=== PATIENT | female | born 1965 | race Caucasian/White ===

== ENCOUNTER 2019-06-04 00:12 | Day surgery (SDC) | payer OTHER, SELFPAY ==
[2019-06-01 15:56] VITALS: BMI 35.2
[2019-06-04 09:50] VITALS: BP 118/91; PULSE 79; RESP 16; TEMP 36.6; O2SAT 100
--- NOTE | 2019-06-04 09:54 | WPDANESEPPF ---
Anes - Initial Pre Proc Eval Procedure: Operation Date: 06/04/19 11:00 Proposed Procedures p Screening Colonoscopy - Chris Rosa MD Date/Time: 06/04/19 09:54 Surgeon: Chris Rosa MD Pre Op Diagnosis: Neoplasm Screening Patient Data Age: 53 Gender: F Height: 1.63 m Weight: 93 kg Allergies Allergy/AdvReac Type Severity Reaction Status Date / Time No Known Allergies Allergy Verified 06/01/19 15:53 Home Medications Medication Instructions Recorded Confirmed Type aspirin 325 mg PO DAILY 06/01/19 06/01/19 History hydrochlorothiazide 12.5 mg PO DAILY 06/01/19 06/01/19 History losartan 50 mg PO DAILY 06/01/19 06/01/19 History Patient hx anesthesia problems: none Family hx anesthesia problems: none PMF Past Medical History Medical History (Updated 06/04/19 @ 09:56 by Quinn Munoz MD) Arthritis HTN (hypertension) Obesity Pulmonary embolism 2015 Family History Family History (Updated 11/24/15 @ 23:21 by DOCTOR UNKNOWN) Sibling Family history of gout Patient's brother is in good health Mother Hypertension Other Carcinoma of colon Family history of malignant neoplasm of breast Social History Social History Smoking status: Never smoker Alcohol intake: current Anes - Eval Final PreProcedure Day of Procedure 06/04/19 09:54 Patient weight: obese Heart: regular rate and rhythm Lungs: clear to auscultation and normal air movement Airway: Mallampati scale class II Neurological: alert and oriented Last oral intake: >/= 8 hours ASA classification: III Emergent: no Anesthetic plan: proceed Anesthesia type and monitoring: general GIVS Informed Consent: The patient's anesthetic plan and its attendant risks and benefits were discussed with the patient/family/POA. Questions were solicited and answers provided to the satisfaction of the patient/family/POA.
[2019-06-04] MEDS: LACTATED RINGERS 1,000 ML 150 ML IV CONT (10:29)
--- NOTE | 2019-06-04 10:53 | PM.HPGS ---
History of Present Illness History of Present Illness Consent: Risks, benefits, and alternatives have been discussed and questions answered. Patient agrees to proceed with procedure. Chief complaint: Neoplasm Screening Narrative: Tanya Pratt is a 53 year old female referred for colon cancer screening [facility] Past Medical History Medical History Arthritis HTN (hypertension) Obesity Pulmonary embolism 2016 Family History Family History Sibling Family history of gout Patient's brother is in good health Mother Hypertension Other Carcinoma of colon Family history of malignant neoplasm of breast Social History Social History Smoking status: Never smoker Alcohol intake: current Meds Home Medications and Allergies Home Medications Medication Instructions Recorded Confirmed Type aspirin 325 mg PO DAILY 06/01/19 06/04/19 History hydrochlorothiazide 12.5 mg PO DAILY 06/01/19 06/04/19 History losartan 50 mg PO DAILY 06/01/19 06/04/19 History Allergies Allergy/AdvReac Type Severity Reaction Status Date / Time No Known Allergies Allergy Verified 06/04/19 10:06 Vital Signs Vital Signs - 24 hr 06/04/19 09:50 Temperature 36.6 C Pulse Rate 79 Respiratory Rate 16 Blood Pressure 118/91 H Pulse Oximetry 100 Exam Resp: Auscultation: clear to auscultation bilaterally Cardio: Rate: regular rate Rhythm: regular rhythm GI: GI Palp: Yes Soft to palpation and No Tenderness to palpation present (GI) Assessment and Plan Assessment and plan (1) Colon cancer screening: Code(s): Z12.11 - Encounter for screening for malignant neoplasm of colon Status: Acute Assessment and Plan: Colonoscopy with possible biopsy or polypectomy or cautery or injection of substances.
[2019-06-04 11:07] VITALS: BP 103/70; PULSE 83; RESP 22; O2SAT 96
[2019-06-04 11:17] VITALS: BP 116/74; PULSE 76; RESP 17; O2SAT 100
[2019-06-04 11:27] VITALS: BP 105/65; PULSE 80; RESP 21; O2SAT 100
== END 2019-06-04 11:36 | disposition home or self-care (01) ==
PROVIDERS: PCP Internal Medicine; Visit Provider Internal Medicine Gastroenterology
PROC: 0DJD8ZZ Inspection of Lower Intestinal Tract, Via Natural or Artificial Opening Endoscopic (ICD-10-PCS; CPT 45378; principal; 2019-06-04 11:00)
DX: Z12.11 Encounter for screening for malignant neoplasm of colon (principal); I10 Essential (primary) hypertension; M19.90 Unspecified osteoarthritis, unspecified site; Z86.711 Personal history of pulmonary embolism; E66.9 Obesity, unspecified; Z68.35 Body mass index [BMI] 35.0-35.9, adult; Z79.82 Long term (current) use of aspirin
CPT/HCPCS: 45378; J2704; J7120

== ENCOUNTER 2022-03-17 10:43 | Emergency (ER) | payer OTHER, SELFPAY ==
--- NOTE | ~2022-03-17 | XR_ITS ---
EXAMINATION: XR knee LT min 4V DATE: 03/17/2022 11:22 INDICATION: Generalized left knee pain post twisting injury TECHNIQUE: Anteroposterior, 2 oblique and crosstable lateral views of the left knee were obtained COMPARISON: None. FINDINGS: Alignment is normal. No fracture. Small to moderate-sized left knee joint effusion without layering lipohemarthrosis. Soft tissues are unremarkable. IMPRESSION: 1. Small to moderate-sized left knee joint effusion. No osseous abnormality. Reviewed, dictated and finalized at location A. ER OPERATOR
[2022-03-17 10:44] VITALS: BP 130/76; PULSE 104; RESP 18; TEMP 37.5; O2SAT 98
--- NOTE | 2022-03-17 12:02 | ED.GENADULT ---
HPI - General Adult General Chief complaint: Extremity Injury, Lower Stated complaint: left knee injury Time Seen by Provider: 03/17/22 11:09 History of Present Illness HPI narrative: 56-year-old female presents for evaluation of left knee pain. Patient states she was walking when her knee gave out and twisted . She is able to ambulate but it is painful to do so. There were no falls or other trauma associated with this injury. Related Data Home Medications Medication Instructions Recorded Confirmed aspirin 325 mg tablet 325 mg PO DAILY 06/01/19 06/04/19 hydrochlorothiazide 12.5 mg tablet 12.5 mg PO DAILY 06/01/19 06/04/19 losartan 50 mg tablet 50 mg PO DAILY 06/01/19 06/04/19 Allergies Allergy/AdvReac Type Severity Reaction Status Date / Time No Known Allergies Allergy Verified 03/17/22 10:43 Review of Systems Review of Systems: CONSTITUTIONAL: Denies fever, chills, or sweats. EYES: Denies visual changes, redness, or discharge. ENT: Denies rhinorrhea, congestion, sore throat, or otalgia. CARDIOVASCULAR: Denies chest pain, palpitations, or edema. RESPIRATORY: Denies cough or dyspnea. GASTROINTESTINAL: Denies abdominal pain, nausea, vomiting, or diarrhea. GENITOURINARY: Denies dysuria or hematuria. SKIN: Denies rash or itching. MUSCULOSKELETAL: Denies back pain, joint pain, or myalgia, questionable MCL laxity on exam NEUROLOGIC: Denies headache, numbness, or weakness. PSYCHIATRIC: Denies anxiety or depression. [facility], [facility] Past Medical History Medical History (Updated 06/04/19 @ 10:54 by Chris Rosa MD) Arthritis HTN (hypertension) Obesity Pulmonary embolism 2016 Family History Family History Sibling Family history of gout Patient's brother is in good health Mother Hypertension Other Carcinoma of colon Family history of malignant neoplasm of breast Social History Social History Smoking status: Never smoker Alcohol intake: current Course Vital Signs Vital signs: Vital Signs Temperature 99.5 F 03/17/22 10:44 Pulse Rate 104 H 03/17/22 10:44 Respiratory Rate 18 03/17/22 10:44 Blood Pressure 130/76 03/17/22 10:44 Pulse Oximetry 98 03/17/22 10:44 Oxygen Delivery Room Air 03/17/22 10:44 Temperature 99.5 F 03/17/22 10:44 Pulse Rate 104 H 03/17/22 10:44 Respiratory Rate 18 03/17/22 10:44 Blood Pressure 130/76 03/17/22 10:44 Pulse Oximetry 98 03/17/22 10:44 Oxygen Delivery Room Air 03/17/22 10:44 Medical Decision Making MDM Narrative Medical decision making narrative: X-rays notable for a left knee effusion but no other bony pathology noted. Will give Marlon wrap and crutches and patient to follow-up with orthopedics. Vital Signs Vital Signs: Vital Signs Temperature 99.5 F 03/17/22 10:44 Pulse Rate 104 H 03/17/22 10:44 Respiratory Rate 18 03/17/22 10:44 Blood Pressure 130/76 03/17/22 10:44 Pulse Oximetry 98 03/17/22 10:44 Oxygen Delivery Room Air 03/17/22 10:44 Temperature 99.5 F 03/17/22 10:44 Pulse Rate 104 H 03/17/22 10:44 Respiratory Rate 18 03/17/22 10:44 Blood Pressure 130/76 03/17/22 10:44 Pulse Oximetry 98 03/17/22 10:44 Oxygen Delivery Room Air 03/17/22 10:44 Discharge Plan Discharge Prescriptions: No Action losartan 50 mg Tablet 50 mg PO DAILY aspirin 325 mg Tablet 325 mg PO DAILY hydrochlorothiazide 12.5 mg Tablet 12.5 mg PO DAILY Follow-up/Referrals: Sheri,Ulisses Patel MD [Primary Care Provider] -
[2022-03-17] MEDS: ACETAMINOPHEN 500 MG TABLET 1000 MG PO (12:24)
--- NOTE | 2022-03-17 12:40 | PC.NURSE ---
Patient states she has crutches at home and does not want another pair.
[2022-03-17 12:45] VITALS: TEMP 37.5
== END 2022-03-17 12:35 | disposition home or self-care (01) ==
PROVIDERS: Emergency Provider Emergency Medicine; PCP Internal Medicine
DX: M25.562 Pain in left knee (principal); I10 Essential (primary) hypertension; M19.90 Unspecified osteoarthritis, unspecified site; Z86.711 Personal history of pulmonary embolism; E66.9 Obesity, unspecified; Z68.36 Body mass index [BMI] 36.0-36.9, adult
CPT/HCPCS: 73564; 99283; A9270

== ENCOUNTER → 2022-07-15 10:48 | Outpatient (CLI) | payer OTHER, SELFPAY ==
--- NOTE | ~2022-07-15 | MR_ITS ---
MRI of the left knee Clinical history: Pain Technique: Coronal proton density and proton density-weighted images, sagittal proton-density and T2 fat-sat images, and axial proton-density fat-saturated images were acquired. Findings: Anterior and posterior cruciate ligaments are intact. Medial collateral ligament and the la teral collateral ligament complex are intact. Popliteus tendon is intact. There is a radial tear at the posterior root of the medial meniscus. No lateral meniscal tear identif ied. There is diffuse mild chondral thinning of the medial compartment. There is mild chondromalacia the f emoral trochlea and patella. Minimal tricompartmental osteophytes noted. Extensor mechanism is intact. Small joint effusion present, with minimal Carter's cyst. Impression: Large radial tear at the posterior root of the medial meniscus. Mild tricompartmental degenerative change, as noted above. Small joint effusion and minimal Carter's cyst. Reviewed, dictated and finalized at [facility]. Impression: Large radial tear at the posterior root of the medial meniscus. Mild tricompartmental degenerative change, as noted above. Small joint effusion and minimal Carter's cyst.
== END ==
PROVIDERS: PCP Internal Medicine
DX: M17.12 Unilateral primary osteoarthritis, left knee (principal); M25.462 Effusion, left knee; M71.22 Synovial cyst of popliteal space [Baker], left knee
CPT/HCPCS: 73721

== ENCOUNTER 2024-10-22 10:29 | Outpatient (CLI) | payer OTHER, SELFPAY ==
--- NOTE | ~2024-10-22 | DEXA_ITS ---
Bone Density Report Name: JORDAN SILVER Age: 59 Sex: Female Ethnicity: White Date of : 1965 Indication: postmenopausal; screening for osteoporosis; Referring Provider: BRENDA JALLOH Study: Bone densitometry was performed. Exam Date: October 22, 2024 Accession number: [id number] Bone Density: Region BMD T-score Z-score Classification AP Spine(L1-L4) 0.902 -1.3 0.0 Osteopenia Femoral Neck (Left) 0.710 -1.3 0.0 Osteopenia Total Hip (Left) 0.880 -0.5 0.4 Normal Femoral Neck (Right) 0.699 -1.3 -0.1 Osteopenia Total Hip (Right) 0.829 -0.9 0.0 Normal Total Hip Mean 0.855 -0.7 0.2 Normal World Health Organization criteria for BMD impression classify patients as: Normal (T-score at or above -1.0), Osteopenia (T-score between -1.0 and -2.5), or Osteoporosis (T-score at or below -2.5). 10-year Fracture Risk(1): Major Osteoporotic Fracture 6.7% Hip Fracture 0.4% Reported Risk Factors: [place] (), Neck BMD=0.699, BMI=36.9 (1) FRAX(R) Version 3.08. Fracture probability calculated for an untreated patient. Fracture probability may be lower if the patient has received treatment. Clinical Information Provided by Patient: Has used the following medications: Vitamin D Patient maximum height was 64 Menopause Age: 51 Drinks caffeinated beverages Onset of menses at age 12 Number of children 3 Impression: The patient has low bone mass, based on the Total Spine T-score. The patient has an estimated ten-year risk of hip fracture of 0.4% and an estimated ten-year risk of major fracture of 6.7%, based on the WHO FRAX algorithm. Discussion: BONE DENSITY IS LOW AT ONE OR MORE SKELETAL SITES. This patient's lowest T-score is low at one or more skeletal sites. It meets the World Health Organization's (WHO) criteria for ?low bone mass? (T-score between -1.0 and -2.5). The patient's 10-year risk of fracture as calculated by FRAX is less than the threshold where pharmacological therapy is recommended by the National Osteoporosis Foundation (NOF). However, all treatment decisions require clinical judgment and consideration of individual patient factors, including patient preferences, comorbidities, previous drug use, risk factors not captured in the FRAX model (e.g., frailty, falls, vitamin D deficiency, increased bone turnover, interval significant decline in bone density) and possible under or overestimation of fracture risk by FRAX. The patient should follow a healthful lifestyle (good nutrition with adequate calcium and vitamin D, and appropriate weight-bearing exercise). Follow-Up: Consider repeating this study in 2 to 3 years to reassess this patient's status, or sooner if there is some new clinical indication. Reported by: RYAN on 10/22/2024 11:14:00 AM. Reviewed, dictated and finalized at location A.
== END 2024-10-22 10:30 | disposition home or self-care (01) ==
LOC: ANHIMG 10:36
PROVIDERS: PCP Internal Medicine; Visit Provider Obstetrics & Gynecology Gynecology
DX: M81.0 Age-related osteoporosis without current pathological fracture (principal); M85.88 Other specified disorders of bone density and structure, other site; M85.852 Other specified disorders of bone density and structure, left thigh; M85.851 Other specified disorders of bone density and structure, right thigh
CPT/HCPCS: 77080